=== PATIENT | female | born 1970 | race Caucasian/White ===

== ENCOUNTER → 2016-09-14 | Outpatient (CLI) | payer BC ==
[~2016-09-14] MED LIST: ASPIRIN81 MG PO; BIRTH CONTROL PO; LIPITOR20 MG PO; NAPROSYN500 MG PO; NORCO 5-325 TA1 EACH PO; ZOLOFT50 MG PO
== END ==
LOC: HEART 5 14:53
DX: Z00.00 Encounter for general adult medical examination without abnormal findings (principal); J30.9 Allergic rhinitis, unspecified; R73.9 Hyperglycemia, unspecified; F41.9 Anxiety disorder, unspecified; F32.9 Major depressive disorder, single episode, unspecified; Z68.30 Body mass index [BMI] 30.0-30.9, adult; R06.2 Wheezing
CPT/HCPCS: 94060